=== PATIENT | male | born 1995 | race Caucasian/White ===

== ENCOUNTER 2019-04-28 09:49 | Emergency (ER) | payer OTHER, SELFPAY ==
--- NOTE | ~2019-04-28 | XR_ITS ---
EXAMINATION: XR hand LT min 3V DATE: 04/28/2019 10:14 INDICATION: Punching injury with pain at the ulnar-sided metacarpals TECHNIQUE: Posteroanterior, oblique and lateral views of the left hand were obtained. COMPARISON: None. FINDINGS: 10 degrees palmar angulation of an oblique extra-articular fracture at the distal diaphysis of the le ft fifth metacarpal. Chronic nonunited ulnar styloid avulsion fracture without significant displaceme nt. No other fractures or malalignment identified. Joint spaces are normal. Soft tissue swelling at t he dorsum of the hand. IMPRESSION: 1. 10 degrees palmar angulation of an extra-articular fracture at the neck of the left fifth metacarp al. Reviewed, dictated and finalized at location A. IMPRESSION: 1. 10 degrees palmar angulation of an extra-articular fracture at the neck of t he left fifth metacarpal.
[2019-04-28 10:02] VITALS: BP 150/80; PULSE 66; RESP 14; TEMP 36.3; O2SAT 100
--- NOTE | 2019-04-28 10:30 | ED.UPPEXIN ---
HPI - Extremity Injury (Upper) General Chief Complaint: Extremity Injury, Upper Stated Complaint: Injury to left hand Time Seen by Provider: 04/28/19 10:31 Source: patient Mode of arrival: ambulatory Limitations: no limitations History of Present Illness HPI narrative: Jonathan Mays is a 24 yo male with a PMH who comes to express care with pain and swelling in his left hand after hitting a wall while upset on Wednesday. At home, patient works for [employer] and needs to be able to use right hand Related Data Home Medications Medication Instructions Recorded Confirmed No Home Medications 04/28/19 04/28/19 Allergies Allergy/AdvReac Type Severity Reaction Status Date / Time amoxicillin Allergy Rash Verified 04/28/19 10:10 Review of Systems Review of Systems: Narrative: CONSTITUTIONAL: Denies fever, chills, sweats. EYES: Denies visual changes, redness, discharge. ENT: Denies rhinorrhea, congestion, sore throat, otalgia. CARDIOVASCULAR: Denies chest pain, palpitations, edema. RESPIRATORY: Denies dyspnea, wheezing, cough GASTROINTESTINAL: Denies abdominal pain, nausea, vomiting, diarrhea. GENITOURINARY: Denies dysuria, hematuria, abnormal discharge SKIN: Denies rash or itching. NEUROLOGIC: Denies numbness, or focal weakness. PSYCHIATRIC: Denies anxiety or depression. Right hand pain is well PMFSH Family History Family History Other Diabetes mellitus Social History Social History (Updated 04/28/19 @ 10:34 by Krystin Aguero CNP) Smoking status: Never smoker Alcohol intake: current Comments At time of signature, I agree with nursing past medical, surgical, social and family history. There is no relevant family history pertinent to the presenting complaint. Exam Narrative: Exam Narrative: GENERAL: This is a well-nourished, well-developed patient, in no apparent distress. HEAD: normocephalic, atraumatic. EYES: Sclera clear/white. Vision is grossly intact. EARS: External ears normal, Hearing grossly intact. NOSE: External nose normal with no obvious nasal discharge, nares without redness, no rhinorrhea. THROAT: Mucous membranes moist, . NECK: Neck supple, . CARDIOVASCULAR: Regular rate and rhythm without murmurs, gallops, or rubs. RESPIRATORY: Clear to auscultation. Breath sounds equal bilaterally. No wheezes, rales, or rhonchi. GASTROINTESTINAL: Abdomen soft, SKIN: warm, intact with no suspicious lesions or rash, good texture and turgor. NEURO: awake, alert, and oriented to person, place and time. There were no obvious focal neurologic abnormalities. Steady gait EXTREMITIES: Normal range of motion on R. L hand has good finger opposition, difficulty moving little finger laterally, able to close fingers and hand splayed except for the finger, cap refill less than 3 seconds BACK: Nontender without deformity . Course Course Emergency Course: X-ray shows 10 degree angulated fracture of the fifth left metacarpal, extra-articular palmar angulation-Lisandro wrap applied Vital Signs Vital signs: Vital Signs Temperature 97.4 F L 04/28/19 10:02 Pulse Rate 66 04/28/19 10:02 Respiratory Rate 14 04/28/19 10:02 Blood Pressure 150/80 H 04/28/19 10:02 Pulse Oximetry 100 04/28/19 10:02 Temperature 97.4 F L 04/28/19 10:02 Pulse Rate 66 04/28/19 10:02 Respiratory Rate 14 04/28/19 10:02 Blood Pressure 150/80 H 04/28/19 10:02 Pulse Oximetry 100 04/28/19 10:02 MDM - Extremity Injury (Upper) Differential Diagnosis Differential diagnosis: Likely sprain and strain of wrist, dislocation of finger, Colles' fracture and other Discharge Plan Discharge Clinical Impression: Fracture of finger of left hand Qualifiers: Encounter type: initial encounter Finger: little finger Fracture type: closed Phalanx: distal Fracture alignment: displaced Qualified Code(s): S62.637A - Displaced fracture of distal phalanx of left little finger, initial encounte
== END 2019-04-28 10:48 | disposition home or self-care (01) ==
PROVIDERS: Emergency Provider Nurse Practitioner
DX: S62.637A Displaced fracture of distal phalanx of left little finger, initial encounter for closed fracture (principal); W22.09XA Striking against other stationary object, initial encounter
CPT/HCPCS: 73130; 99204; G0463